=== PATIENT | male | born 2000 | race Caucasian/White ===

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

== ENCOUNTER → 2020-03-21 12:02 | Outpatient (BNVA) | payer OTHER, MEDICAID, SELFPAY | PROVIDERS: Family Provider Pediatrics Adolescent Medicine; Visit Provider Psychiatry & Neurology Psychiatry | DX: F90.2 Attention-deficit hyperactivity disorder, combined type (principal); F91.3 Oppositional defiant disorder | CPT/HCPCS: 99213 ==

== ENCOUNTER → 2020-04-04 09:32 | Outpatient (BNVA) | payer OTHER, MEDICAID, SELFPAY | PROVIDERS: Family Provider Pediatrics Adolescent Medicine; Visit Provider Psychiatry & Neurology Psychiatry | DX: Z79.899 Other long term (current) drug therapy (principal) | CPT/HCPCS: 80061; 83036 ==

== ENCOUNTER → 2020-06-27 08:41 | Outpatient (BNVA) | payer OTHER, MEDICAID, SELFPAY | PROVIDERS: Family Provider Pediatrics Adolescent Medicine; Visit Provider Psychiatry & Neurology Psychiatry | DX: F90.2 Attention-deficit hyperactivity disorder, combined type (principal); F91.3 Oppositional defiant disorder | CPT/HCPCS: 99213 ==

== ENCOUNTER 2020-08-14 08:54 | Emergency (ER) | payer OTHER, MEDICAID, SELFPAY ==
--- NOTE | 2020-08-14 09:04 | XR_ITS ---
WS: [id number] Exam: XR shoulder LT min 2V* [id number] Date/Time of Exam: 08/14/2020 9:04 AM Reason For Exam: left shoulder pain The projections of the shoulder reveal no fractures, anomalies, soft tissue swelling, or calcificatio ns. There is normal bony alignment. No irregularity of the bony architecture is noted. XR/XR shoulder LT min 2V* [id number] IMPRESSION: Negative left shoulder.
[2020-08-14 09:07] VITALS: BP 136/82; PULSE 87; RESP 14; TEMP 36.2; O2SAT 96; BMI 24.3
--- NOTE | 2020-08-14 09:28 | ED_ITS ---
HPI - Extremity Problem General: Chief complaint: Extremity Problem,Nontraumatic Stated complaint: Left shoulder pain *1 week Time Seen by Provider: 08/14/20 09:04 Source: patient and family (mother) Mode of arrival: ambulatory Limitations: no limitations History of Present Illness: HPI Narrative: 19-year-old male patient presents to the emergency department with 5 to 7-day onset of left posterior shoulder pain. He reports pain was improving until this morning. He reports could barely move his arm due to the pain he experienced in the posterior shoulder. States pain is much better now in the ED, did not take oral medication for pain. He denies neck pain, left arm pain or left arm numbness/tingling. MD Complaint: joint pain (left shoulder - posterior) Onset (ago): day(s) (5-7) Pain Consistency: intermittent Location: left and upper extremity Severity scale (1-10): 3 Quality: aching and dull Radiation: none Relieving factors: immobilization and rest Exacerbating factors: range of motion Associated symptoms: Reports no associated symptoms; Deny chest pain, fever(s) or rash Review of Systems General: Reports: 10 or more systems reviewed and unremarkable except in HPI and below Const: Denies: fever(s), chills or diaphoresis Eyes: Denies: blurry vision or eye redness ENMT: Denies: throat pain, dental pain or disequilibrium Card: Denies: chest pain, palpitations or irregular heart rhythm Resp: Denies: dyspnea, productive cough, non-productive cough or wheezing GI: Denies: abdominal pain, nausea, vomiting, diarrhea or constipation : Denies: difficulty urinating or dysuria Musc: Reports: joint pain; Denies: neck pain, back pain, joint swelling, joint stiffness or muscle cramps Skin/Breast: Denies: rash or pruritus Neuro: Denies: headache(s), weakness in extremities or behavioral changes Psych: Denies: anxiety or depression Marcelino/Lymph: Denies: easy bruising PFS ED PFSH: Medical History (Updated 08/14/20 @ 09:34 by MIKE Luu) Attention deficit hyperactivity disorder (ADHD), combined type, mild Oppositional defiant disorder Social History (Updated 08/14/20 @ 09:11 by Eusebio Hernandez RN) Smoking and tobacco status: never smoked Second hand smoke exposure: No Smoking risk assessment/counseling performed?: Yes Alcohol intake: never Substance/Drug Use: never Physical Exam Const: COMMON NORMALS: no acute distress, patient oriented x3, healthy appearing and alert GENERAL APPEARANCE: cooperative, comfortable and well hydrated HENMT: COMMON NORMALS: normocephalic, Normal external nose present and moist oral mucous membranes HEAD & SCALP: normocephalic NOSE: Normal external nose present Eye: COMMON NORMALS: Equal, round and reactive pupils present and EOMs intact bilaterally GENERAL EYE: appearance normal, both eyes and all related structures PUPIL: Yes Equal, round and reactive pupils present Neck/C-Spine: COMMON NORMALS: full ROM, no lymphadenopathy and supple GENERAL: Yes normal visual inspection, Yes trachea midline, No anterior neck swelling and No torticollis CERVICAL SPINE: Yes cervical ROM normal, No cervical ROM abnormal, Yes pain with cervical ROM with extension (reproduces pain to the trapezius (left)) and No Cervical spine tenderness Lymph: LYMPHATIC: no lymphadenopathy noted Chest: COMMONS NORMALS: normal inspection of the chest Resp: COMMON NORMALS: normal respiratory effort, No retractions, No use of accessory muscles and clear to auscultation bilaterally EFFORT & INSPECTION: Yes able to speak in complete sentences AUSCULTATION: clear to auscultation bilaterally Cardio: COMMON NORMALS: regular rate, regular rhythm, S1 normal heart sound present, S2 normal heart sound present and Peripheral pulses 2+ throughout RATE: regular rate RHYTHM: regular rhythm HEART SOUNDS: S1 normal heart sound present and S2 normal heart sound present PERIPHERAL PULSES: Peripheral pulses 2+ throughout GI: COMMON NORMALS: Soft to palpation and non-tender INSPECTION: Yes normal to inspection PALPATION: Yes Soft to palpation : COMMON NORMALS: Yes no CVA tenderness BLADDER/KIDNEY EXAM: Yes no CVA tenderness Back/Pelvis: COMMON NORMALS: no CVA tenderness and thoracic and lumbar spine normal to inspection Extremity: COMMON NORMALS: normal to inspection, full ROM, capillary refill normal and no pedal edema GENERAL: Yes normal exam except as noted LEFT UPPER EXTREMITY: Yes shoulder joint Left shoulder joint: Yes inspection (normal), Yes palpation (normal, no pain to the AC joint), Yes ROM (full both active and passive) and Yes neurovascular exam (distally intact) and Yes bony scapula Left bony scapula: Yes inspection (normal), Yes palpation (pain to the left trapezius with muscle spasm, myotonia superior noted) and Yes other (Pain to the left trapezius with palpation) Neuro: COMMON NORMALS: patient oriented x3 and no focal motor deficits SENSORIUM/ORIENTATION: Yes alert Psych: COMMON NORMALS: mental status grossly normal, Normal thought process present and cooperative ACTIVITY/MOTOR BEHAVIOR: Yes appropriate eye contact THOUGHT PROCESS: Normal thought process present Skin: COMMON NORMALS: no rashes or lesions noted and turgor normal GENERAL SKIN EXAM: no rashes or lesions noted and turgor normal Course Vital Signs: Vital signs: Vital Signs Temperature 97.2 F L 08/14/20 09:07 Pulse Rate 87 08/14/20 09:07 Respiratory Rate 14 08/14/20 09:07 Blood Pressure 136/82 08/14/20 09:07 Pulse Oximetry 96 08/14/20 09:07 Discharge Plan Discharge Patient Disposition: Home Clinical Impression: Trapezius muscle spasm Trapezius muscle strain Qualifiers: Encounter type: initial encounter Laterality: left Qualified Code(s): S46.812A - Strain of other muscles, fascia and tendons at shoulder and upper arm level, left arm, initial encounter Condition: Stable Prescriptions: New cyclobenzaprine 10 mg tablet 10 mg PO TID PRN (Reason: muscle spasm) Qty: 10 RF: 0 IBU 600 mg tablet 600 mg PO TID PRN (Reason: pain) Qty: 14 RF: 0 No Action aripiprazole [Abilify] 10 mg tablet See Rx Instructions PO BID Qty: 30 RF: 5 methylphenidate HCl [Concerta] 36 mg tablet extended release 24hr 36 mg PO QAM 30 Days Qty: 30 RF: 0 methylphenidate HCl [Concerta] 36 mg tablet extended release 24hr 36 mg PO QAM 30 Days Qty: 30 RF: 0 Discharge Orders: Discharge ED (Routine); Ordered 08/14/20 Ordered By: Sherrie Morris Discharge Diet: Usual diet Discharge Activity: Resume usual activity Patient Instructions: Muscle Strain (ED), Musculoskeletal Pain (ED) Activity Restrictions/Additional Instructions: Return to the emergency department if you develop fever with neck pain or other concerning symptoms such as left arm numbness and tingling Follow-up with your primary care provider in 3 to 4 days if not improving with medication prescribed today Do not take [id number] ibuprofen, Advil or Aleve as duplication of therapy can occur with prescribed ibuprofen provided today Apply warm moist heat to the area several times daily along with gentle massage to help with pain Recommend supportive pillow and limit use of the left arm until pain has improved. Coding Level of Care Code ED Blower Room Attendant for Jak Fwd Exam Comprehensive
[2020-08-14] MEDS: ibuprofen 600 mg Tablet PO (09:42)
== END 2020-08-14 09:44 | disposition home or self-care (01) ==
PROVIDERS: Emergency Provider Nurse Practitioner Family
DX: S46.812A Strain of other muscles, fascia and tendons at shoulder and upper arm level, left arm, initial encounter (principal); X58.XXXA Exposure to other specified factors, initial encounter
CPT/HCPCS: 12345; 73030; 99281; 99283

== ENCOUNTER → 2020-08-30 12:55 | Outpatient (BNVA) | payer OTHER, MEDICAID, SELFPAY | PROVIDERS: Visit Provider Psychiatry & Neurology Psychiatry | DX: F90.2 Attention-deficit hyperactivity disorder, combined type (principal) | CPT/HCPCS: 99213 ==

== ENCOUNTER → 2020-11-22 13:30 | Outpatient (BNVA) | payer OTHER, MEDICAID, SELFPAY | PROVIDERS: Visit Provider Psychiatry & Neurology Psychiatry | DX: F90.2 Attention-deficit hyperactivity disorder, combined type (principal); R45.4 Irritability and anger | CPT/HCPCS: 99214 ==

== ENCOUNTER 2025-08-05 13:33 | Emergency (ER) | payer MEDICAID, SELFPAY ==
--- NOTE | 2025-08-05 13:34 | XRR_ITS ---
PROCEDURE INFORMATION: Exam: XR Right Hand Exam date and time: 08/05/2025 2:04 PM Age: 24 years old Clinical indication: Pain; Finger(s); Right; Additional Info: PAIN/SWELLING TO RT 3RD DIGIT; DISCOLORATION; NUMBNESS PER PT TECHNIQUE: Imaging protocol: Radiologic exam of the right hand. Views: 3 or more views. COMPARISON: No relevant prior studies available. FINDINGS: Bones/joints: Phalangeal structures are intact. Metacarpal structures are intact. Carpal alignment is normal. Joint spaces are well preserved. No intra-articular calcifications are appreciated. Visualized distal radius and ulna are intact. Soft tissues: Soft tissue swelling of the 3rd digit. XR/XR hand RT min 3V* [id number] IMPRESSION: 1. Soft tissue swelling of the 3rd digit. 2. No fracture or dislocation appreciated.
[2025-08-05 13:35] VITALS: BP 138/67; PULSE 114; RESP 18; TEMP 36.7; O2SAT 98; BMI 30.8
[2025-08-05 14:26] VITALS: BP 124/91; O2SAT 97
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
[2025-08-05] MEDS: HYDROcodone-acetaminophen 5-325 mg Tablet 1 TAB PO (14:38)
[2025-08-05 14:44] VITALS: BP 124/91; PULSE 107; RESP 17; O2SAT 97
== END 2025-08-05 14:45 | disposition home or self-care (01) ==
PROVIDERS: Emergency Provider Emergency Medicine
DX: S63.612A Unspecified sprain of right middle finger, initial encounter (principal); Y04.2XXA Assault by strike against or bumped into by another person, initial encounter
CPT/HCPCS: 73130; 99283; J9999